=== PATIENT | male | born 1970 | race Caucasian/White ===

== ENCOUNTER 2018-11-18 02:39 | Inpatient (IN) | payer OTHER ==
[~2018-11-18] VITALS: Ht 190.5 cm; Wt 179.6 kg
--- NOTE | 2018-11-18 02:45 | PHYS DOC ---
Past Medical History Past Medical History: GERD, Hypertension, Kidney Stone Past Surgical History: Cholecystectomy Additional Past Surgical Histo: Inguinal hernia Additional Information: Nonsmoker Alcohol Use: Occasionally Drug Use: None Adult General Chief Complaint Chief Complaint: FLANK PAIN HPI HPI 48 y/o male presents with report of left flank pain with radiation to LLQ which started yesterday. Patient reports sharp in nature. Reports it has not resolved but rather has become progressively worse. Denies fever/chills. Denies rash. Denies trauma. Denies dysuria or hematuria. Reports prior history of kidney stones. Review of Systems Review of Systems Constitutional: Denies fever or chills [] Eyes: Denies change in visual acuity, redness, or eye pain [] HENT: Denies nasal congestion or sore throat [] Respiratory: Denies cough or shortness of breath [] Cardiovascular: Denies chest pain or palpitations GI: Reports abdominal pain and nausea; denies vomiting or diarrhea [] : Denies dysuria or hematuria [] Musculoskeletal: Reports left flank pain; denies extremity pain Integument: Denies rash or skin lesions [] Neurologic: Denies headache, focal weakness or sensory changes [] Reports systems were reviewed and found to be within normal limits, except as documented in this note. Current Medications Current Medications Current Medications Medications (Trade) Dose Ordered Sig/[facility] Start Time Stop Time Status Last Admin Dose Admin Ketorolac Tromethamine (Toradol 15mg Vial) 15 mg 1X ONCE 11/18/18 03:30 11/18/18 03:31 DC 11/18/18 03:25 15 MG Metoclopramide HCl (Reglan Vial) 10 mg 1X ONCE 11/18/18 03:30 11/18/18 03:31 DC 11/18/18 03:25 10 MG Sodium Chloride 1,000 ml @ 1,000 mls/hr 1X ONCE 11/18/18 03:30 11/18/18 04:29 DC 11/18/18 03:25 1,000 MLS/HR Allergies Allergies Allergies Coded Allergies Type Severity Reaction Last Updated Verified No Known Drug Allergies 11/18/18 No Physical Exam Physical Exam Constitutional: Well developed, well nourished, uncomfortable, non-toxic appearance. [] HENT: Normocephalic, atraumatic Eyes: Conjunctiva normal, no discharge. [] Neck: Normal range of motion, no tenderness, supple Cardiovascular: Heart rate normal and regular rhythm Lungs & Thorax: Bilateral breath sounds clear to auscultation [] Abdomen: Soft, mild LLQ tenderness on palpitation Skin: Warm, dry, no erythema, no rash. [] Back: No tenderness, left CVA tenderness noted. [] Extremities: No tenderness, ROM intact, no edema. [] Neurologic: Alert and oriented X 3, normal motor function, normal sensory function, no focal deficits noted. [] Psychologic: Affect normal, judgement normal, mood normal. [] Current Patient Data Vital Signs Vital Signs Date Time Temp Pulse Resp B/P (MAP) Pulse Ox O2 Delivery O2 Flow Rate FiO2 11/18/18 02:50 77 173/93 (119) 97 Room Air 11/18/18 02:42 98.0 17 98.0 Lab Values Laboratory Tests Test 11/18/18 03:00 White Blood Count 11.0 x10^3/uL (4.0-11.0) Red Blood Count 4.68 x10^6/uL (4.30-5.70) Hemoglobin 14.7 g/dL (13.0-17.5) Hematocrit 42.8 % (39.0-53.0) Mean Corpuscular Volume 92 fL (79-100) Mean Corpuscular Hemoglobin 31 pg (25-35) Mean Corpuscular Hemoglobin Concent 34 g/dL (31-37) Red Cell Distribution Width 13.2 % (11.5-14.5) Platelet Count 254 x10^3/uL (140-400) Neutrophils (%) (Auto) 77 % (31-73) H Lymphocytes (%) (Auto) 12 % (24-48) L Monocytes (%) (Auto) 9 % (0-9) Eosinophils (%) (Auto) 1 % (0-3) Basophils (%) (Auto) 1 % (0-3) Neutrophils # (Auto) 8.5 x10^3uL (1.8-7.7) H Lymphocytes # (Auto) 1.3 x10^3/uL (1.0-4.8) Monocytes # (Auto) 1.0 x10^3/uL (0.0-1.1) Eosinophils # (Auto) 0.1 x10^3/uL (0.0-0.7) Basophils # (Auto) 0.1 x10^3/uL (0.0-0.2) Sodium Level 139 mmol/L (136-145) Potassium Level 3.7 mmol/L (3.5-5.1) Chloride Level 103 mmol/L (98-107) Carbon Dioxide Level 24 mmol/L (21-32) Anion Gap 12 (6-14) Blood Urea Nitrogen 20 mg/dL (8-26) Creatinine 1.2 mg/dL (0.7-1.3) Estimated GFR (Cockcroft-Gault) 64.9 BUN/Creatinine Ratio 17 (6-20) Glucose Level 135 mg/dL (70-99) H Calcium Level 8.9 mg/dL (8.5-10.1) Magnesium Level 1.9 mg/dL (1.8-2.4) Total Bilirubin 0.5 mg/dL (0.2-1.0) Aspartate Amino Transferase (AST) 31 U/L (15-37) Alanine Aminotransferase (ALT) 58 U/L (16-63) Alkaline Phosphatase 53 U/L (46-116) Total Protein 6.8 g/dL (6.4-8.2) Albumin 3.7 g/dL (3.4-5.0) Albumin/Globulin Ratio 1.2 (1.0-1.7) Lipase 120 U/L (73-393) Laboratory Tests 11/18/18 03:00 Laboratory Tests 11/18/18 03:00 EKG EKG [] Radiology/Procedures Radiology/Procedures PROCEDURE: CT ABDOMEN PELVIS WO CONTRAST Examination: CT of the abdomen pelvis without contrast HISTORY: History of left flank pain COMPARISON: 05/28/2008 TECHNIQUE: Axial CT images of the abdomen pelvis were performed without contrast. Coronal and sagittal reformats are performed Exposure: One or more of the following individualized dose reduction techniques were utilized for this examination: 1. Automated exposure control 2. Adjustment of the mA and/or kV according to patient size 3. Use of iterative reconstruction technique FINDINGS: Minimal bibasilar lung atelectasis. No evidence of free air identified in the abdomen The evaluation of the solid organs is limited due to lack of IV contrast. The evaluation of bowel is limited due to lack of oral contrast. The visualized noncontrasted liver, spleen, adrenals grossly appears unremarkable. Cholecystectomy clips identified. The stomach is mildly distended. The visualized pancreas grossly appears unremarkable. The small bowel is nondilated. Appendix is normal. Feces and gas noted in the colon Multiple sigmoid colon diverticulosis. Urinary bladder is mildly distended 4 mm calculus identified in the left kidney. Mild left-sided hydronephrosis and hydroureter is identified with a 2 mm, and an 8 mm calculi identified at the junction of the mid and distal left ureter causing hydroureteronephrosis. There is fat stranding identified about the left kidney and the left ureter. Urinary bladder is mildly distended. The caliber of the aorta grossly appears unremarkable. Mild degenerative changes thoracic lumbar spine. IMPRESSION: 1. Mild left-sided hydronephrosis and hydroureter identified with fat stranding about the left kidney and the left ureter with a 2 mm, and an 8 mm calculi identified at the junction of the mid and distal left ureter. Electronically signed by: Ajay Taylor MD (11/18/2018 3:15 AM) [facility] Course & Med Decision Making Course & Med Decision Making Pertinent Labs and Imaging studies reviewed. (See chart for details) Patient presents with left flank pain with radiation to LLQ. Pain/nausea addressed. IVF hydration given. Labs obtained and posted to chart. UA without signs of infection. CT abd/pelvis with findings of mild hydronephrosis of left kidney due to obstructing ureteral calculi of 8mm and 2mm. Flomax provided. Patient requiring admission for further evaluation and treatment. Discussed case with Dr. Rangel (hospitalist) who is in agreement with admit. Order for urology consultation placed. Discussed findings and plan with patient, who acknowledges understanding and agreement. Dragon Disclaimer Dragon Disclaimer This electronic medical record was generated, in whole or in part, using a voice recognition dictation system. Departure Departure Impression: Primary Impression: Hydronephrosis with ureteral calculus Disposition: ADMITTED INPATIENT Admitting Physician: Other (Claire) Condition: STABLE Referrals: NO PCP (PCP) AMEYA PATTON DO November 18, 2018 02:45
--- NOTE | 2018-11-18 03:18 | RAD ---
Examination: CT of the abdomen pelvis without contrast HISTORY: History of left flank pain COMPARISON: 05/28/2008 TECHNIQUE: Axial CT images of the abdomen pelvis were performed without contrast. Coronal and sagittal reformats are performed Exposure: One or more of the following individualized dose reduction techniques were utilized for this examination: 1. Automated exposure control 2. Adjustment of the mA and/or kV according to patient size 3. Use of iterative reconstruction technique FINDINGS: Minimal bibasilar lung atelectasis. No evidence of free air identified in the abdomen The evaluation of the solid organs is limited due to lack of IV contrast. The evaluation of bowel is limited due to lack of oral contrast. The visualized noncontrasted liver, spleen, adrenals grossly appears unremarkable. Cholecystectomy clips identified. The stomach is mildly distended. The visualized pancreas grossly appears unremarkable. The small bowel is nondilated. Appendix is normal. Feces and gas noted in the colon Multiple sigmoid colon diverticulosis. Urinary bladder is mildly distended 4 mm calculus identified in the left kidney. Mild left-sided hydronephrosis and hydroureter is identified with a 2 mm, and an 8 mm calculi identified at the junction of the mid and distal left ureter causing hydroureteronephrosis. There is fat stranding identified about the left kidney and the left ureter. Urinary bladder is mildly distended. The caliber of the aorta grossly appears unremarkable. Mild degenerative changes thoracic lumbar spine. IMPRESSION: 1. Mild left-sided hydronephrosis and hydroureter identified with fat stranding about the left kidney and the left ureter with a 2 mm, and an 8 mm calculi identified at the junction of the mid and distal left ureter. Electronically signed by: Ajay Taylor MD (11/18/2018 3:15 AM) [facility]
[2018-11-18 03:24] LABS: BASO # 0.1 x10^3/uL (0.0-0.2); BASO % 1 % (0-3); EOS # 0.1 x10^3/uL (0.0-0.7); EOS % 1 % (0-3); HEMATOCRIT 42.8 % (39.0-53.0); HEMOGLOBIN 14.7 g/dL (13.0-17.5); LYMPH # 1.3 x10^3/uL (1.0-4.8); LYMPH % 12 % (24-48); MEAN CORPUSCULAR HEMOGLOBIN 31 pg (25-35); MEAN CORPUSCULAR HGB CONC 34 g/dL (31-37); MEAN CORPUSCULAR VOLUME 92 fL (79-100); MONO % 9 % (0-9); NEUT # 8.5 x10^3uL (1.8-7.7); NEUT % 77 % (31-73); PLATELET COUNT 254 x10^3/uL (140-400); RED BLOOD COUNT 4.68 x10^6/uL (4.30-5.70); RED CELL DISTRIBUTION WIDTH 13.2 % (11.5-14.5)
[2018-11-18] MEDS ORDERED: KETOROLAC 15 MG/ML VIAL. IV ONE (03:30)
[2018-11-18] MEDS ORDERED: METOCLOPRAMIDE HCL 10 MG/2 ML VIAL. IV ONE (03:30)
[2018-11-18] MEDS ORDERED: IV NORMAL SALINE 1000ML BAG 1,000 ML IV ONE ×2 (03:30→04:00)
[2018-11-18 03:33] LABS: CALCIUM 8.9 mg/dL (8.5-10.1); CREATININE 1.2 mg/dL (0.7-1.3); GFR 64.9; POTASSIUM 3.7 mmol/L (3.5-5.1)
[2018-11-18 03:39] LABS: ALBUMIN 3.7 g/dL (3.4-5.0); ALBUMIN/GLOBULIN RATIO 1.2 (1.0-1.7); MAGNESIUM 1.9 mg/dL (1.8-2.4); TOTAL BILIRUBIN 0.5 mg/dL (0.2-1.0); TOTAL PROTEIN 6.8 g/dL (6.4-8.2)
[2018-11-18] MEDS ORDERED: fentaNYL PF VIAL 100 MCG/2 ML VIAL IV PRN ×3 (03:45→10:15)
[2018-11-18] MEDS ORDERED: ONDANSETRON PF 4 MG/2 ML VIAL. IV PRN ×2 (03:45→10:15)
[2018-11-18] MEDS ORDERED: fentaNYL PF VIAL 100 MCG/2 ML VIAL IV ONE (04:00)
[2018-11-18] MEDS ORDERED: TAMSULOSIN 0.4 MG CAP.ER.24H. PO ONE (04:00)
[2018-11-18 04:20] VITALS: BP 147/87
--- NOTE | 2018-11-18 04:30 | NUR ---
Patient admitted from ER to room 428 per wheelchair. Admitting diagnosis is flank pain with 8mm stone left kidney. Patient states he had a previous stone about 1 year ago. He passed that stone on his own. Patient does not remember the size of that stone. Patient is alert and oriented x4. Patient lives at home with his brother. Patient has NKA. Patient NPO at this time. Consult with Urology. Will continue to monitor.
[2018-11-18] MEDS ORDERED: AMLO5TAB10 PO (05:43)
[2018-11-18] MEDS ORDERED: FLUT9.9S NS (05:43)
[2018-11-18] MEDS ORDERED: ESOM40CA PO (05:43)
[2018-11-18] MEDS ORDERED: MELO15TA23 PO (05:43)
[2018-11-18] MEDS ORDERED: LOSA100T14 PO (05:43)
[2018-11-18 07:00] VITALS: BP 158/91
--- NOTE | 2018-11-18 09:52 | PDOC1 ---
History and Physical Date of Admission Date of Admission DATE: 11/18/18 TIME: 09:52 Identification/Chief Complaint Chief Complaint SEEN IN ER SEVERE PAIN PERSISTS 48 y/o male presents with report of left flank pain with radiation to LLQ which started yesterday. Patient reports sharp in nature. Reports it has not resolved but rather has become progressively worse. Denies fever/chills. Denies rash. Denies trauma. Denies dysuria or hematuria. Reports prior history of kidney stones. Past Medical History Past Medical History Past Medical History Past Medical History: GERD, Hypertension, Kidney Stone Past Surgical History: Cholecystectomy Additional Past Surgical Histo: Inguinal hernia Additional Information: Nonsmoker Alcohol Use: Occasionally Drug Use: None family hx obesity Infectious disease: No pertinent hx Family History Family History: Hypertension Social History Smoke: No ALCOHOL: occassional Drugs: None Current Problem List Problem List Problems Medical Problems: (1) Hydronephrosis with ureteral calculus Status: Acute Current Medications Current Medications Current Medications Ketorolac Tromethamine (Toradol 15mg Vial) 15 mg 1X ONCE IV Last administered on 11/18/18at 03:25; Start 11/18/18 at 03:30; Stop 11/18/18 at 03:31; Status DC Sodium Chloride 1,000 ml @ 1,000 mls/hr 1X ONCE IV Last administered on 11/18/18at 03:25; Start 11/18/18 at 03:30; Stop 11/18/18 at 04:29; Status DC Metoclopramide HCl (Reglan Vial) 10 mg 1X ONCE IV Last administered on 11/18/18at 03:25; Start 11/18/18 at 03:30; Stop 11/18/18 at 03:31; Status DC Tamsulosin HCl (Flomax) 0.4 mg 1X ONCE PO Last administered on 11/18/18at 03:50; Start 11/18/18 at 04:00; Stop 11/18/18 at 04:01; Status DC Fentanyl Citrate (Fentanyl 2ml Vial) 50 mcg 1X ONCE IV Last administered on 11/18/18at 03:50; Start 11/18/18 at 04:00; Stop 11/18/18 at 04:01; Status DC Ondansetron HCl (Zofran) 4 mg PRN Q8HRS PRN IV NAUSEA/VOMITING 1ST CHOICE Last administered on 11/18/18at 07:50; Start 11/18/18 at 03:45; Stop 11/19/18 at 03:44 Fentanyl Citrate (Fentanyl 2ml Vial) 50 mcg PRN Q2HRS PRN IV SEVERE PAIN Last administered on 11/18/18at 06:31; Start 11/18/18 at 03:45 Sodium Chloride 1,000 ml @ 125 mls/hr 1X ONCE IV Last administered on 11/18/18at 04:54; Start 11/18/18 at 04:00; Stop 11/18/18 at 11:59 Active Scripts Active Reported Flonase Allergy Relief (Fluticasone Propionate) 9.9 Ml [place].susp 2 Sprays NS HS Meloxicam 15 Mg Tablet 1 Tab PO DAILY Amlodipine Besylate 5 Mg Tablet 5 Mg PO DAILY Losartan Potassium 100 Mg Tablet 100 Mg PO DAILY Nexium Capsule (Esomeprazole Magnesium) 40 Mg Capsule.dr 1 Cap PO DAILY Allergies Allergies: Coded Allergies: No Known Drug Allergies (Unverified , 11/18/18) ROS Review of System Review of Systems Review of Systems Constitutional: Denies fever or chills [] Eyes: Denies change in visual acuity, redness, or eye pain [] HENT: Denies nasal congestion or sore throat [] Respiratory: Denies cough or shortness of breath [] Cardiovascular: Denies chest pain or palpitations GI: Reports abdominal pain and nausea; denies vomiting or diarrhea [] : Denies dysuria or hematuria [] Musculoskeletal: Reports left flank pain; denies extremity pain Integument: Denies rash or skin lesions [] Neurologic: Denies headache, focal weakness or sensory changes [] 14 PT systems were reviewed and found to be within normal limits, except as documented . General: No: Chills, Night Sweats, Fatigue, Malaise, Appetite, Other ALLERGY AND IMMUNOLOGY: No: Hives, Insect Bite Sensitivity, Itchy/Watery Eyes, Nasal Congestion, Post Nasal Drip, Seasonal Allergies, Other Respiratory: No: Cough, Hemoptysis, Orthopnea, Pleuritic Pain, Shortness of breath, SOB with excertion, Sputum Changes, Stridor, Tachypnea, Wheezing, Other Cardiovascular: No Chest Pain, No Palpitations, No Orthopnea, No Paroxysmal Noc. Dyspnea, No Edema, No Lt Headedness, No Other Genitourinary: YES Flank Pain Neurological: No Behavorial Changes, No Bowel/Bladder ControlChng, No Confusion, No Dizziness, No Gait Disturbance, No Headaches, No Impaired Coord/balance, No Memory Loss, No Numbness/Tingling, No Seizures, No Speech Problems, No Tremors, No Visual Changes, No Weakness, No Other Physical Exam Physical Exam Physical Exam Physical Exam Constitutional: Well developed, well nourished, MOD DISTRESS uncomfortable, non- toxic appearance. [] HENT: Normocephalic, atraumatic Eyes: Conjunctiva normal, no discharge. [] Neck: Normal range of motion, no tenderness, supple Cardiovascular: Heart rate normal and regular rhythm Lungs & Thorax: Bilateral breath sounds clear to auscultation [] Abdomen: Soft, mild LLQ tenderness on palpitation Skin: Warm, dry, no erythema, no rash. [] Back: No tenderness, left CVA tenderness noted. [] Extremities: No tenderness, ROM intact, no edema. [] Neurologic: Alert and oriented X 3, normal motor function, normal sensory function, no focal deficits noted. [] Psychologic: Affect normal, judgement normal, mood normal. [] General: moderate distress HEENT: Atraumatic, PERRLA Lungs: Clear to auscultation Heart: S1S2, RRR Abdomen: Soft Rectal Exam: not examined Neuro: Normal speech, Strength at 5/5 X4 ext, Cranial nerves 3-12 NL Psych/Mental Status: Mental status NL, Mood NL Vitals Vitals Vital Signs Date Time Temp Pulse Resp B/P (MAP) Pulse Ox O2 Delivery O2 Flow Rate FiO2 11/18/18 07:00 98.1 66 18 158/91 (113) 92 Room Air 98.1 Labs Labs Laboratory Tests Test 11/18/18 03:00 11/18/18 07:32 White Blood Count 11.0 x10^3/uL (4.0-11.0) Red Blood Count 4.68 x10^6/uL (4.30-5.70) Hemoglobin 14.7 g/dL (13.0-17.5) Hematocrit 42.8 % (39.0-53.0) Mean Corpuscular Volume 92 fL (79-100) Mean Corpuscular Hemoglobin 31 pg (25-35) Mean Corpuscular Hemoglobin Concent 34 g/dL (31-37) Red Cell Distribution Width 13.2 % (11.5-14.5) Platelet Count 254 x10^3/uL (140-400) Neutrophils (%) (Auto) 77 % (31-73) Lymphocytes (%) (Auto) 12 % (24-48) Monocytes (%) (Auto) 9 % (0-9) Eosinophils (%) (Auto) 1 % (0-3) Basophils (%) (Auto) 1 % (0-3) Neutrophils # (Auto) 8.5 x10^3uL (1.8-7.7) Lymphocytes # (Auto) 1.3 x10^3/uL (1.0-4.8) Monocytes # (Auto) 1.0 x10^3/uL (0.0-1.1) Eosinophils # (Auto) 0.1 x10^3/uL (0.0-0.7) Basophils # (Auto) 0.1 x10^3/uL (0.0-0.2) Sodium Level 139 mmol/L (136-145) Potassium Level 3.7 mmol/L (3.5-5.1) Chloride Level 103 mmol/L (98-107) Carbon Dioxide Level 24 mmol/L (21-32) Anion Gap 12 (6-14) Blood Urea Nitrogen 20 mg/dL (8-26) Creatinine 1.2 mg/dL (0.7-1.3) Estimated GFR (Cockcroft-Gault) 64.9 BUN/Creatinine Ratio 17 (6-20) Glucose Level 135 mg/dL (70-99) Calcium Level 8.9 mg/dL (8.5-10.1) Magnesium Level 1.9 mg/dL (1.8-2.4) Total Bilirubin 0.5 mg/dL (0.2-1.0) Aspartate Amino Transf (AST/SGOT) 31 U/L (15-37) Alanine Aminotransferase (ALT/SGPT) 58 U/L (16-63) Alkaline Phosphatase 53 U/L (46-116) Total Protein 6.8 g/dL (6.4-8.2) Albumin 3.7 g/dL (3.4-5.0) Albumin/Globulin Ratio 1.2 (1.0-1.7) Lipase 120 U/L (73-393) Glucose (Fingerstick) 117 mg/dL (70-99) Laboratory Tests Test 11/18/18 03:00 11/18/18 07:32 White Blood Count 11.0 x10^3/uL (4.0-11.0) Red Blood Count 4.68 x10^6/uL (4.30-5.70) Hemoglobin 14.7 g/dL (13.0-17.5) Hematocrit 42.8 % (39.0-53.0) Mean Corpuscular Volume 92 fL (79-100) Mean Corpuscular Hemoglobin 31 pg (25-35) Mean Corpuscular Hemoglobin Concent 34 g/dL (31-37) Red Cell Distribution Width 13.2 % (11.5-14.5) Platelet Count 254 x10^3/uL (140-400) Neutrophils (%) (Auto) 77 % (31-73) Lymphocytes (%) (Auto) 12 % (24-48) Monocytes (%) (Auto) 9 % (0-9) Eosinophils (%) (Auto) 1 % (0-3) Basophils (%) (Auto) 1 % (0-3) Neutrophils # (Auto) 8.5 x10^3uL (1.8-7.7) Lymphocytes # (Auto) 1.3 x10^3/uL (1.0-4.8) Monocytes # (Auto) 1.0 x10^3/uL (0.0-1.1) Eosinophils # (Auto) 0.1 x10^3/uL (0.0-0.7) Basophils # (Auto) 0.1 x10^3/uL (0.0-0.2) Sodium Level 139 mmol/L (136-145) Potassium Level 3.7 mmol/L (3.5-5.1) Chloride Level 103 mmol/L (98-107) Carbon Dioxide Level 24 mmol/L (21-32) Anion Gap 12 (6-14) Blood Urea Nitrogen 20 mg/dL (8-26) Creatinine 1.2 mg/dL (0.7-1.3) Estimated GFR (Cockcroft-Gault) 64.9 BUN/Creatinine Ratio 17 (6-20) Glucose Level 135 mg/dL (70-99) Calcium Level 8.9 mg/dL (8.5-10.1) Magnesium Level 1.9 mg/dL (1.8-2.4) Total Bilirubin 0.5 mg/dL (0.2-1.0) Aspartate Amino Transf (AST/SGOT) 31 U/L (15-37) Alanine Aminotransferase (ALT/SGPT) 58 U/L (16-63) Alkaline Phosphatase 53 U/L (46-116) Total Protein 6.8 g/dL (6.4-8.2) Albumin 3.7 g/dL (3.4-5.0) Albumin/Globulin Ratio 1.2 (1.0-1.7) Lipase 120 U/L (73-393) Glucose (Fingerstick) 117 mg/dL (70-99) Images Images REASON: left flank pain eval for ureteral calculi PROCEDURE: CT ABDOMEN PELVIS WO CONTRAST Examination: CT of the abdomen pelvis without contrast HISTORY: History of left flank pain COMPARISON: 05/28/2008 TECHNIQUE: Axial CT images of the abdomen pelvis were performed without contrast. Coronal and sagittal reformats are performed Exposure: One or more of the following individualized dose reduction techniques were utilized for this examination: 1. Automated exposure control 2. Adjustment of the mA and/or kV according to patient size 3. Use of iterative reconstruction technique FINDINGS: Minimal bibasilar lung atelectasis. No evidence of free air identified in the abdomen The evaluation of the solid organs is limited due to lack of IV contrast. The evaluation of bowel is limited due to lack of oral contrast. The visualized noncontrasted liver, spleen, adrenals grossly appears unremarkable. Cholecystectomy clips identified. The stomach is mildly distended. The visualized pancreas grossly appears unremarkable. The small bowel is nondilated. Appendix is normal. Feces and gas noted in the colon Multiple sigmoid colon diverticulosis. Urinary bladder is mildly distended 4 mm calculus identified in the left kidney. Mild left-sided hydronephrosis and hydroureter is identified with a 2 mm, and an 8 mm calculi identified at the junction of the mid and distal left ureter causing hydroureteronephrosis. There is fat stranding identified about the left kidney and the left ureter. Urinary bladder is mildly distended. The caliber of the aorta grossly appears unremarkable. Mild degenerative changes thoracic lumbar spine. IMPRESSION: 1. Mild left-sided hydronephrosis and hydroureter identified with fat stranding about the left kidney and the left ureter with a 2 mm, and an 8 mm calculi identified at the junction of the mid and distal left ureter. Electronically signed by: Ajay Taylor MD (11/18/2018 3:15 AM) [facility] VTE Prophylaxis Ordered VTE Prophylaxis Devices: Yes VTE Pharmacological Prophylaxi: Yes Assessment/Plan Assessment/Plan IMPRESSION: 1. Mild left-sided hydronephrosis and hydroureter identified with fat stranding about the left kidney and the left ureter with a 2 mm, and an 8 mm calculi identified at the junction of the mid and distal left ureter. 2. INTRACTABLE PAIN SEC TO URETERAL COLIC 3. HTN 4. Morbid obesity, extreme bmi 49 plan iv pain control npo urology consult home meds ADMIT DVT PROPHYLAXIS CHRISTINE BELL MD November 18, 2018 09:52
[2018-11-18] MEDS ORDERED: IV RINGERS,LACTATED 1000ML 1,000 ML IV SCH (10:06)
--- NOTE | 2018-11-18 10:13 | RAD ---
Portable KUB, 11/18/2018: HISTORY: Check kidney stone The abdominal gas pattern is unremarkable. The patient's known urinary tract calculi are not visible. The portable technique and the patient's size is limiting this exam. There is no evidence of organomegaly. IMPRESSION: No acute abdominal abnormality is detected. Electronically signed by: Wilmer Scruggs MD (11/18/2018 10:10 AM) [facility]
[2018-11-18 10:15] LABS: BILIRUBIN,URINE NEGATIVE (NEG); CLARITY,URINE CLEAR; COLOR,URINE YELLOW; NITRITE,URINE NEGATIVE (NEG); PH,URINE 6.5; PROTEIN,URINE NEGATIVE (NEG-TRACE)
[2018-11-18] MEDS ORDERED: PROCHLORPERAZINE 10 MG/2 ML VIAL. IV PRN (10:15)
[2018-11-18] MEDS ORDERED: LIDOCAINE 1% PF 2 ML VIAL. ID PRN (10:15)
[2018-11-18] MEDS ORDERED: HYDROmorphone 2 MG/ML VIAL IV PRN (10:15)
[2018-11-18] MEDS ORDERED: MORPHINE SULFATE 2 MG/ML VIAL. IV PRN (10:15)
[2018-11-18 10:24] LABS: BACTERIA,URINE FEW /HPF (0-FEW); SQUAMOUS EPITHELIAL CELL,UR OCC /LPF; WBC,URINE OCC /HPF (0-4)
--- NOTE | 2018-11-18 10:30 | PDOC2 ---
REHANJOANNE L [employer] ANALYST 11/18/18 1030: UROLOGY CONSULT Date of Consult Date of Consult DATE: 11/18/18 TIME: Identification/Chief Complaint Chief Complaint Kidney stone/left sided pain Source Source: Caregiver, Chart review, Patient History of Present Illness Reason for Visit: This 48 year odl male arrived through the R complaining of left sided pain and left abd pain. Today his pain is still sharp and in his left side. He is nauseas but not vomiting. This is not his ftrst time with a kidney stone. He had one several years ago, but it was not this painful and it came out on its own. He had some dysuria once, but this is not really a problem. He denies hematuria and prefers to have a surgery today for this if possible. Past Medical History Cardiovascular: HTN (Controlled with medication ) Renal/: Other (Kidney stone in the past ) Social History No ALCOHOL: occassional Drugs: None Current Medications Current Medications Current Medications Fentanyl Citrate (Fentanyl 2ml Vial) 25 mcg PRN Q5MIN PRN IV MILD PAIN; Start 11/18/18 at 10:15; Stop 11/18/18 at 20:00 Fentanyl Citrate (Fentanyl 2ml Vial) 50 mcg 1X ONCE IV Last administered on 11/18/18at 03:50; Start 11/18/18 at 04:00; Stop 11/18/18 at 04:01; Status DC Fentanyl Citrate (Fentanyl 2ml Vial) 50 mcg PRN Q2HRS PRN IV SEVERE PAIN Last administered on 11/18/18at 06:31; Start 11/18/18 at 03:45 Fentanyl Citrate (Fentanyl 2ml Vial) 50 mcg PRN Q5MIN PRN IV MODERATE TO SEVERE PAIN; Start 11/18/18 at 10:15; Stop 11/18/18 at 20:00 Hydromorphone HCl (Dilaudid) 0.5 mg PRN Q10MIN PRN IV SEV PAIN, Second choice; Start 11/18/18 at 10:15; Stop 11/18/18 at 20:00 Ketorolac Tromethamine (Toradol 15mg Vial) 15 mg 1X ONCE IV Last administered on 11/18/18at 03:25; Start 11/18/18 at 03:30; Stop 11/18/18 at 03:31; Status DC Lidocaine HCl (Xylocaine-Mpf 1% 2ml Vial) 2 ml 1X PRN PRN ID IV START; Start 11/18/18 at 10:15; Stop 11/18/18 at 20:00 Metoclopramide HCl (Reglan Vial) 10 mg 1X ONCE IV Last administered on 11/18/18at 03:25; Start 11/18/18 at 03:30; Stop 11/18/18 at 03:31; Status DC Morphine Sulfate (Morphine Sulfate) 1 mg PRN Q10MIN PRN IV SEVERE PAIN; Start 11/18/18 at 10:15; Stop 11/18/18 at 20:00 Ondansetron HCl (Zofran) 4 mg PRN Q6HRS PRN IV NAUSEA/VOMITING; Start 11/18/18 at 10:15; Stop 11/18/18 at 20:00 Ondansetron HCl (Zofran) 4 mg PRN Q8HRS PRN IV NAUSEA/VOMITING 1ST CHOICE Last administered on 11/18/18at 07:50; Start 11/18/18 at 03:45; Stop 11/19/18 at 03:44 Prochlorperazine Edisylate (Compazine) 5 mg PACU PRN PRN IV NAUSEA, MRX1; Start 11/18/18 at 10:15; Stop 11/18/18 at 20:00 Ringer's Solution 1,000 ml @ 30 mls/hr Q24H IV ; Start 11/18/18 at 10:06; Stop 11/18/18 at 22:05 Sodium Chloride 1,000 ml @ 125 mls/hr 1X ONCE IV Last administered on 11/18/18at 04:54; Start 11/18/18 at 04:00; Stop 11/18/18 at 11:59 Sodium Chloride 1,000 ml @ 1,000 mls/hr 1X ONCE IV Last administered on 11/18/18at 03:25; Start 11/18/18 at 03:30; Stop 11/18/18 at 04:29; Status DC Tamsulosin HCl (Flomax) 0.4 mg 1X ONCE PO Last administered on 11/18/18at 03:50; Start 11/18/18 at 04:00; Stop 11/18/18 at 04:01; Status DC Allergies Allergies: Coded Allergies: No Known Drug Allergies (Unverified , 11/18/18) ROS Review Of Systems: CONSTITUTIONAL: No fever or chills EYES: No recent changes SKIN: No rash or itching CARDIOVASCULAR: No chest pain, syncope, palpitations, or edema RESPIRATORY: No SOB or cough GASTROINTESTINAL: + nausea, no vomiting, + left sided abdominal pain NEUROLOGICAL: No headaches or weakness ENDOCRINE: No cold or heat intolerance GENITOURINARY: + dysuria but improved, no hematuria MUSCULOSKELETAL: No back pain or joint pain LYMPHATICS: No enlarged lymph nodes PSYCHIATRIC: No anxiety or depression Physical Exam Physical Exam: General: Pleasant, no acute distress, well groomed Eyes: conjunctiva anicteric, eyes full range of motion ENT: moist oral mucosa, normal dentition Neck: Trachea midline, no masses Respiratory: unlabored breathing, not using accessory muscles, Abdomen: Soft, obese + tender left side, non tender on the right. Skin: no rashes or skin lesions on visualized skin Psych: normal mood, affect. Alert and oriented x 3. Vitals VITALS Vital Signs Date Time Temp Pulse Resp B/P (MAP) Pulse Ox O2 Delivery O2 Flow Rate FiO2 11/18/18 07:00 98.1 66 18 158/91 (113) 92 Room Air 98.1 Labs Labs Laboratory Tests Test 11/18/18 03:00 11/18/18 07:32 White Blood Count 11.0 x10^3/uL (4.0-11.0) Red Blood Count 4.68 x10^6/uL (4.30-5.70) Hemoglobin 14.7 g/dL (13.0-17.5) Hematocrit 42.8 % (39.0-53.0) Mean Corpuscular Volume 92 fL (79-100) Mean Corpuscular Hemoglobin 31 pg (25-35) Mean Corpuscular Hemoglobin Concent 34 g/dL (31-37) Red Cell Distribution Width 13.2 % (11.5-14.5) Platelet Count 254 x10^3/uL (140-400) Neutrophils (%) (Auto) 77 % (31-73) Lymphocytes (%) (Auto) 12 % (24-48) Monocytes (%) (Auto) 9 % (0-9) Eosinophils (%) (Auto) 1 % (0-3) Basophils (%) (Auto) 1 % (0-3) Neutrophils # (Auto) 8.5 x10^3uL (1.8-7.7) Lymphocytes # (Auto) 1.3 x10^3/uL (1.0-4.8) Monocytes # (Auto) 1.0 x10^3/uL (0.0-1.1) Eosinophils # (Auto) 0.1 x10^3/uL (0.0-0.7) Basophils # (Auto) 0.1 x10^3/uL (0.0-0.2) Sodium Level 139 mmol/L (136-145) Potassium Level 3.7 mmol/L (3.5-5.1) Chloride Level 103 mmol/L (98-107) Carbon Dioxide Level 24 mmol/L (21-32) Anion Gap 12 (6-14) Blood Urea Nitrogen 20 mg/dL (8-26) Creatinine 1.2 mg/dL (0.7-1.3) Estimated GFR (Cockcroft-Gault) 64.9 BUN/Creatinine Ratio 17 (6-20) Glucose Level 135 mg/dL (70-99) Calcium Level 8.9 mg/dL (8.5-10.1) Magnesium Level 1.9 mg/dL (1.8-2.4) Total Bilirubin 0.5 mg/dL (0.2-1.0) Aspartate Amino Transf (AST/SGOT) 31 U/L (15-37) Alanine Aminotransferase (ALT/SGPT) 58 U/L (16-63) Alkaline Phosphatase 53 U/L (46-116) Total Protein 6.8 g/dL (6.4-8.2) Albumin 3.7 g/dL (3.4-5.0) Albumin/Globulin Ratio 1.2 (1.0-1.7) Lipase 120 U/L (73-393) Glucose (Fingerstick) 117 mg/dL (70-99) Laboratory Tests Test 11/18/18 03:00 11/18/18 07:32 White Blood Count 11.0 x10^3/uL (4.0-11.0) Red Blood Count 4.68 x10^6/uL (4.30-5.70) Hemoglobin 14.7 g/dL (13.0-17.5) Hematocrit 42.8 % (39.0-53.0) Mean Corpuscular Volume 92 fL (79-100) Mean Corpuscular Hemoglobin 31 pg (25-35) Mean Corpuscular Hemoglobin Concent 34 g/dL (31-37) Red Cell Distribution Width 13.2 % (11.5-14.5) Platelet Count 254 x10^3/uL (140-400) Neutrophils (%) (Auto) 77 % (31-73) Lymphocytes (%) (Auto) 12 % (24-48) Monocytes (%) (Auto) 9 % (0-9) Eosinophils (%) (Auto) 1 % (0-3) Basophils (%) (Auto) 1 % (0-3) Neutrophils # (Auto) 8.5 x10^3uL (1.8-7.7) Lymphocytes # (Auto) 1.3 x10^3/uL (1.0-4.8) Monocytes # (Auto) 1.0 x10^3/uL (0.0-1.1) Eosinophils # (Auto) 0.1 x10^3/uL (0.0-0.7) Basophils # (Auto) 0.1 x10^3/uL (0.0-0.2) Sodium Level 139 mmol/L (136-145) Potassium Level 3.7 mmol/L (3.5-5.1) Chloride Level 103 mmol/L (98-107) Carbon Dioxide Level 24 mmol/L (21-32) Anion Gap 12 (6-14) Blood Urea Nitrogen 20 mg/dL (8-26) Creatinine 1.2 mg/dL (0.7-1.3) Estimated GFR (Cockcroft-Gault) 64.9 BUN/Creatinine Ratio 17 (6-20) Glucose Level 135 mg/dL (70-99) Calcium Level 8.9 mg/dL (8.5-10.1) Magnesium Level 1.9 mg/dL (1.8-2.4) Total Bilirubin 0.5 mg/dL (0.2-1.0) Aspartate Amino Transf (AST/SGOT) 31 U/L (15-37) Alanine Aminotransferase (ALT/SGPT) 58 U/L (16-63) Alkaline Phosphatase 53 U/L (46-116) Total Protein 6.8 g/dL (6.4-8.2) Albumin 3.7 g/dL (3.4-5.0) Albumin/Globulin Ratio 1.2 (1.0-1.7) Lipase 120 U/L (73-393) Glucose (Fingerstick) 117 mg/dL (70-99) Images Images CT ABD/PELVIS IMPRESSION: 1. Mild left-sided hydronephrosis and hydroureter identified with fat stranding about the left kidney and the left ureter with a 2 mm, and an 8 mm calculi identified at the junction of the mid and distal left ureter. Assessment/Plan Assessment/Plan Patient is scheduled for left URS with laser and stent [place] with [place] Ibar[place] [facility] [place] 1 [place]. Pt is requesting and agreeable to procedure. Consents entered. Discussed with RN that we need UA pedro. Cipro ordered. Pt to remain NPO until after procedure. Continue IVF, pain and nausea control and to strain urine. All questions answered. JUVENTINO SINGLETON MD 11/18/18 9189: UROLOGY CONSULT Assessment/Plan Assessment/Plan left distal stone. left hydro. Will proceed w URS given pain control issues. gh, uti, injury to urethra, bladder, UO, ureter, kidney, stent discomfort, migration, etc discussed. JOANNE VAN APRN November 18, 2018 10:30 JUVENTINO SINGLETON MD November 18, 2018 14:39
[2018-11-18] MEDS ORDERED: IOHEXOL 300 MG/ML 50 ML VIAL. ONE ×2 (10:32→11:30)
[2018-11-18] MEDS ORDERED: LIDOCAINE 2% 100 MG/5 ML SYRINGE. ONE (10:33)
[2018-11-18] MEDS ORDERED: LIDOCAINE 2% JELLY 6ML IN APPLICATOR. ONE (10:34)
[2018-11-18 11:00] VITALS: BP 132/70
[2018-11-18] MEDS ORDERED: ROCURONIUM 50 MG/5 ML VIAL. ONE (12:12)
[2018-11-18] MEDS ORDERED: fentaNYL PF VIAL 100 MCG/2 ML VIAL ONE (12:12)
--- NOTE | 2018-11-18 12:31 | NUR ---
SW following for discharge planning. Discussed with RN, pt is from home with brother. Pt having surgery today. SW will continue to follow for any discharge planning needs.
[2018-11-18] MEDS ORDERED: SEVOFLURANE 61 TO 120 MINUTES. IH ONE (13:54)
[2018-11-18] MEDS ORDERED: ONDANSETRON PF 4 MG/2 ML VIAL. ONE (13:54)
[2018-11-18] MEDS ORDERED: PROPOFOL 40 ML IV ONE (13:54)
[2018-11-18] MEDS ORDERED: DEXAMETHASONE SOD PHOS 4 MG/ML VIAL ONE ×2 (13:55)
[2018-11-18] MEDS ORDERED: LIDOCAINE 2% PF 5 ML VIAL. ONE (13:55)
[2018-11-18] MEDS ORDERED: NEOSTIGMINE METHYLSULFATE 5 MG/5 ML SYRINGE. ONE (14:22)
[2018-11-18] MEDS ORDERED: GLYCOPYRROLATE 1 MG/5 ML VIAL. ONE (14:22)
--- NOTE | 2018-11-18 14:36 | PDOC4 ---
OPERATIVE NOTE Date: Date: November 18, 2018 Pre-Op Diagnosis: Left distal stone Post-Op Diagnosis: same Procedure Performed: left urs w laser /stent left rpg Surgeon: Anesthesia Type: ga Blood Loss: 1ml Specimans Obtained: stones Findings: left distal stones Complications: none evident JUVENTINO SINGLETON MD November 18, 2018 14:36
[2018-11-18] MEDS ORDERED: hydrALAZINE 20 MG/ML VIAL. ONE (15:20)
[2018-11-18] MEDS ORDERED: hydrALAZINE 20 MG/ML VIAL. IVP PRN (15:30)
[2018-11-18 15:55] VITALS: BP 158/94
[2018-11-18 16:15] VITALS: BP 147/102
[2018-11-18 16:30] VITALS: BP 145/102
--- NOTE | 2018-11-18 16:42 | OP ---
DATE OF SURGERY: 11/18/2018 PREOPERATIVE DIAGNOSIS: Left ureter stone. POSTOPERATIVE DIAGNOSIS: Left ureter stone. PROCEDURE: 1. Left ureteroscopy with laser lithotripsy. 2. Left retrograde pyelography interpretation. SURGEON: Kathe Goncalves MD. ANESTHESIA: General. CONDITION: Stable. COMPLICATIONS: None. FINDINGS: Left distal ureter stones 1.8 x 1.2 mm. These were removed entirely. ESTIMATED BLOOD LOSS: 0-1 mL. CONDITION: Stable. COMPLICATIONS: None evident. PROCEDURE IN DETAIL: The patient was taken back to the procedure room and placed under general anesthesia in the supine position per the protocol. He was prepped and draped in usual sterile fashion in dorsal lithotomy position. Timeout was performed. SCDs were attached. IV antibiotics were administered. A 21-Salvadorean rigid cystoscope was advanced per urethra into the bladder. Careful systematic review of the bladder, a small capacity bladder with left ureteral orifice orthotopic and patent position. This was cannulated with a 5-Salvadorean open-ended ureteral catheter. Gentle retrograde pyelography visualized questionable filling defect noted in the distal ureter about 2 cm below the sacroiliac joint lower level. A sensor wire was placed over the Pollack all the way into the kidney. A semirigid ureteroscope was obtained and inserted into the distal ureter. A 365 nanometers laser fiber was used to pulverize the stone into smaller pieces. All fragments were removed with 0 tip nitinol basket. A flexible ureteroscopy visualized no residual fragments noted in the entirety of the ureter given on instrumentation and ureteral dilation. I decided to leave the stent behind. This was done under fluoroscopy with 6 x 26 stents with strings externalized to the penis with Mastisol and Tegaderm. The patient was awakened and taken to the PACU in stable condition. DISPOSITION: The patient may be discharged home later today. He will follow up with me. He will remove his strings at home in a week and follow up with me in 2-3 weeks afterwards or get a followup in the clinic next week for a nurse's string removal with the stent. KATHE GONCALVES MD DR: SOLANGE/danny JOB#: [id number] / [id number]
--- NOTE | 2018-11-18 18:20 | PDOC3 ---
Discharge Summary Date of Admission: November 17, 2018 Date of Discharge: November 18, 2018 Follow-Up: 3-5 days Admitting Diagnosis comment: VTE Prophylaxis Ordered VTE Prophylaxis Devices: Yes VTE Pharmacological Prophylaxi: Yes discharge dx Assessment/Plan IMPRESSION: 1. Mild left-sided hydronephrosis and hydroureter identified with fat stranding about the left kidney and the left ureter with a 2 mm, and an 8 mm calculi identified at the junction of the mid and distal left ureter. 2. INTRACTABLE PAIN SEC TO URETERAL COLIC 3. HTN 4. Morbid obesity, extreme bmi 49 plan iv pain control npo urology consult ok with d/c today home meds ADMIT DVT PROPHYLAXIS PREOPERATIVE DIAGNOSIS: Left ureter stone. POSTOPERATIVE DIAGNOSIS: Left ureter stone. PROCEDURE: 1. Left ureteroscopy with laser lithotripsy. 2. Left retrograde pyelography interpretation. SURGEON: Kathe Goncalves MD. ANESTHESIA: General. CONDITION: Stable. COMPLICATIONS: None. FINDINGS: Left distal ureter stones 1.8 x 1.2 mm. These were removed entirely. ESTIMATED BLOOD LOSS: 0-1 mL. CONDITION: Stable. FINAL DIAGNOSIS Problems Medical Problems: (1) Hydronephrosis with ureteral calculus Status: Acute Brief Hospital Course Mr. Gonzalez is a 48 old [sex] who presented with [ urteral colic] CONDITION AT DISCHARGE: Improved Discharge Medications Current Medications Ketorolac Tromethamine (Toradol 15mg Vial) 15 mg 1X ONCE IV Last administered on 11/18/18at 03:25; Start 11/18/18 at 03:30; Stop 11/18/18 at 03:31; Status DC Sodium Chloride 1,000 ml @ 1,000 mls/hr 1X ONCE IV Last administered on 11/18/18at 03:25; Start 11/18/18 at 03:30; Stop 11/18/18 at 04:29; Status DC Metoclopramide HCl (Reglan Vial) 10 mg 1X ONCE IV Last administered on 11/18/18at 03:25; Start 11/18/18 at 03:30; Stop 11/18/18 at 03:31; Status DC Tamsulosin HCl (Flomax) 0.4 mg 1X ONCE PO Last administered on 11/18/18at 03:50; Start 11/18/18 at 04:00; Stop 11/18/18 at 04:01; Status DC Fentanyl Citrate (Fentanyl 2ml Vial) 50 mcg 1X ONCE IV Last administered on 11/18/18at 03:50; Start 11/18/18 at 04:00; Stop 11/18/18 at 04:01; Status DC Ondansetron HCl (Zofran) 4 mg PRN Q8HRS PRN IV NAUSEA/VOMITING 1ST CHOICE Last administered on 11/18/18at 07:50; Start 11/18/18 at 03:45; Stop 11/19/18 at 03:44 Fentanyl Citrate (Fentanyl 2ml Vial) 50 mcg PRN Q2HRS PRN IV SEVERE PAIN Last administered on 11/18/18at 06:31; Start 11/18/18 at 03:45 Sodium Chloride 1,000 ml @ 125 mls/hr 1X ONCE IV Last administered on 11/18/18at 04:54; Start 11/18/18 at 04:00; Stop 11/18/18 at 11:59; Status DC Ondansetron HCl (Zofran) 4 mg PRN Q6HRS PRN IV NAUSEA/VOMITING; Start 11/18/18 at 10:15; Stop 11/18/18 at 20:00 Fentanyl Citrate (Fentanyl 2ml Vial) 25 mcg PRN Q5MIN PRN IV MILD PAIN; Start 11/18/18 at 10:15; Stop 11/18/18 at 20:00 Fentanyl Citrate (Fentanyl 2ml Vial) 50 mcg PRN Q5MIN PRN IV MODERATE TO SEVERE PAIN; Start 11/18/18 at 10:15; Stop 11/18/18 at 20:00 Morphine Sulfate (Morphine Sulfate) 1 mg PRN Q10MIN PRN IV SEVERE PAIN; Start 11/18/18 at 10:15; Stop 11/18/18 at 20:00 Ringer's Solution 1,000 ml @ 30 mls/hr Q24H IV Last administered on 11/18/18at 12:33; Start 11/18/18 at 10:06; Stop 11/18/18 at 22:05 Lidocaine HCl (Xylocaine-Mpf 1% 2ml Vial) 2 ml 1X PRN PRN ID IV START; Start 11/18/18 at 10:15; Stop 11/18/18 at 20:00 Hydromorphone HCl (Dilaudid) 0.5 mg PRN Q10MIN PRN IV SEV PAIN, Second choice; Start 11/18/18 at 10:15; Stop 11/18/18 at 20:00 Prochlorperazine Edisylate (Compazine) 5 mg PACU PRN PRN IV NAUSEA, MRX1; Start 11/18/18 at 10:15; Stop 11/18/18 at 20:00 Ciprofloxacin/ Dextrose 200 ml @ 200 mls/hr 1X ONCE IV ; Start 12/08/18 at 12:30; Stop 12/08/18 at 13:29 Iohexol (Omnipaque 300 Mg/ml) 50 ml STK-MED ONCE .ROUTE Last administered on 11/18/18at 13:47; Start 11/18/18 at 10:32; Stop 11/18/18 at 11:33; Status DC Lidocaine HCl (Lidocaine HCl 2% Abboject) 100 mg STK-MED ONCE .ROUTE ; Start 11/18/18 at 10:33; Stop 11/18/18 at 11:33; Status DC Lidocaine HCl (Glydo (Lidocaine) Jelly) 6 celestina STK-MED ONCE .ROUTE ; Start 11/18/18 at 10:34; Stop 11/18/18 at 11:34; Status DC Fentanyl Citrate (Fentanyl 2ml Vial) 100 mcg STK-MED ONCE .ROUTE ; Start 11/18/18 at 12:12; Stop 11/18/18 at 12:13; Status DC Rocuronium Lenore (Zemuron) 50 mg STK-MED ONCE .ROUTE ; Start 11/18/18 at 12:12; Stop 11/18/18 at 12:13; Status DC Iohexol (Omnipaque 300 Mg/ml) 50 ml STK-MED ONCE .ROUTE ; Start 11/18/18 at 11:30; Stop 11/18/18 at 12:31; Status DC Sevoflurane (Ultane) 60 ml STK-MED ONCE IH ; Start 11/18/18 at 13:54; Stop 11/18/18 at 13:55; Status DC Ondansetron HCl (Zofran) 4 mg STK-MED ONCE .ROUTE ; Start 11/18/18 at 13:54; Stop 11/18/18 at 13:55; Status DC Propofol 40 ml @ As Directed STK-MED ONCE IV ; Start 11/18/18 at 13:54; Stop 11/18/18 at 13:55; Status DC Lidocaine HCl (Lidocaine Pf 2% Vial) 5 ml STK-MED ONCE .ROUTE ; Start 11/18/18 at 13:55; Stop 11/18/18 at 13:56; Status DC Dexamethasone Sodium Phosphate (Decadron) 4 mg STK-MED ONCE .ROUTE ; Start 11/18/18 at 13:55; Stop 11/18/18 at 13:56; Status DC Dexamethasone Sodium Phosphate (Decadron) 4 mg STK-MED ONCE .ROUTE ; Start 11/18/18 at 13:55; Stop 11/18/18 at 13:56; Status DC Neostigmine Methylsulfate (Neostigmine Methylsulfate) 5 mg STK-MED ONCE .ROUTE ; Start 11/18/18 at 14:22; Stop 11/18/18 at 14:23; Status DC Glycopyrrolate (Robinul) 1 mg STK-MED ONCE .ROUTE ; Start 11/18/18 at 14:22; Stop 11/18/18 at 14:23; Status DC Hydralazine HCl (Apresoline Inj) 20 mg STK-MED ONCE .ROUTE ; Start 11/18/18 at 15:20; Stop 11/18/18 at 15:21; Status DC Hydralazine HCl (Apresoline Inj) 10 mg PRN 1X PRN IVP see comments; Start 11/18/18 at 15:30 Active Scripts Active Reported Flonase Allergy Relief (Fluticasone Propionate) 9.9 Ml Niland.susp 2 Sprays NS HS Meloxicam 15 Mg Tablet 1 Tab PO DAILY Amlodipine Besylate 5 Mg Tablet 5 Mg PO DAILY Losartan Potassium 100 Mg Tablet 100 Mg PO DAILY Nexium Capsule (Esomeprazole Magnesium) 40 Mg Capsule.dr 1 Cap PO DAILY Vital Signs Vital Signs Date Time Temp Pulse Resp B/P (MAP) Pulse Ox O2 Delivery O2 Flow Rate FiO2 11/18/18 16:30 95 18 145/102 (116) 93 Room Air 11/18/18 15:55 97.0 97.0 11/18/18 15:35 2 Labs Laboratory Tests Test 11/18/18 03:00 11/18/18 07:32 11/18/18 10:00 White Blood Count 11.0 x10^3/uL (4.0-11.0) Red Blood Count 4.68 x10^6/uL (4.30-5.70) Hemoglobin 14.7 g/dL (13.0-17.5) Hematocrit 42.8 % (39.0-53.0) Mean Corpuscular Volume 92 fL (79-100) Mean Corpuscular Hemoglobin 31 pg (25-35) Mean Corpuscular Hemoglobin Concent 34 g/dL (31-37) Red Cell Distribution Width 13.2 % (11.5-14.5) Platelet Count 254 x10^3/uL (140-400) Neutrophils (%) (Auto) 77 % (31-73) Lymphocytes (%) (Auto) 12 % (24-48) Monocytes (%) (Auto) 9 % (0-9) Eosinophils (%) (Auto) 1 % (0-3) Basophils (%) (Auto) 1 % (0-3) Neutrophils # (Auto) 8.5 x10^3uL (1.8-7.7) Lymphocytes # (Auto) 1.3 x10^3/uL (1.0-4.8) Monocytes # (Auto) 1.0 x10^3/uL (0.0-1.1) Eosinophils # (Auto) 0.1 x10^3/uL (0.0-0.7) Basophils # (Auto) 0.1 x10^3/uL (0.0-0.2) Sodium Level 139 mmol/L (136-145) Potassium Level 3.7 mmol/L (3.5-5.1) Chloride Level 103 mmol/L (98-107) Carbon Dioxide Level 24 mmol/L (21-32) Anion Gap 12 (6-14) Blood Urea Nitrogen 20 mg/dL (8-26) Creatinine 1.2 mg/dL (0.7-1.3) Estimated GFR (Cockcroft-Gault) 64.9 BUN/Creatinine Ratio 17 (6-20) Glucose Level 135 mg/dL (70-99) Calcium Level 8.9 mg/dL (8.5-10.1) Magnesium Level 1.9 mg/dL (1.8-2.4) Total Bilirubin 0.5 mg/dL (0.2-1.0) Aspartate Amino Transf (AST/SGOT) 31 U/L (15-37) Alanine Aminotransferase (ALT/SGPT) 58 U/L (16-63) Alkaline Phosphatase 53 U/L (46-116) Total Protein 6.8 g/dL (6.4-8.2) Albumin 3.7 g/dL (3.4-5.0) Albumin/Globulin Ratio 1.2 (1.0-1.7) Lipase 120 U/L (73-393) Glucose (Fingerstick) 117 mg/dL (70-99) Urine Collection Type Unknown Urine Color Yellow Urine Clarity Clear Urine pH 6.5 Urine Specific [place] 1.015 Urine Protein Negative mg/dL (NEG-TRACE) Urine Glucose (UA) Negative mg/dL (NEG) Urine Ketones (Stick) Negative mg/dL (NEG) Urine Blood Trace (NEG) Urine Nitrite Negative (NEG) Urine Bilirubin Negative (NEG) Urine Urobilinogen Dipstick 1.0 mg/dL (0.2 mg/dL) Urine Leukocyte Esterase Negative (NEG) Urine RBC 6-10 /HPF (0-2) Urine WBC Occ /HPF (0-4) Urine Squamous Epithelial Cells Occ /LPF Urine Bacteria Few /HPF (0-FEW) Urine Mucus Mod /LPF Laboratory Tests Test 11/18/18 03:00 11/18/18 07:32 11/18/18 10:00 White Blood Count 11.0 x10^3/uL (4.0-11.0) Red Blood Count 4.68 x10^6/uL (4.30-5.70) Hemoglobin 14.7 g/dL (13.0-17.5) Hematocrit 42.8 % (39.0-53.0) Mean Corpuscular Volume 92 fL (79-100) Mean Corpuscular Hemoglobin 31 pg (25-35) Mean Corpuscular Hemoglobin Concent 34 g/dL (31-37) Red Cell Distribution Width 13.2 % (11.5-14.5) Platelet Count 254 x10^3/uL (140-400) Neutrophils (%) (Auto) 77 % (31-73) Lymphocytes (%) (Auto) 12 % (24-48) Monocytes (%) (Auto) 9 % (0-9) Eosinophils (%) (Auto) 1 % (0-3) Basophils (%) (Auto) 1 % (0-3) Neutrophils # (Auto) 8.5 x10^3uL (1.8-7.7) Lymphocytes # (Auto) 1.3 x10^3/uL (1.0-4.8) Monocytes # (Auto) 1.0 x10^3/uL (0.0-1.1) Eosinophils # (Auto) 0.1 x10^3/uL (0.0-0.7) Basophils # (Auto) 0.1 x10^3/uL (0.0-0.2) Sodium Level 139 mmol/L (136-145) Potassium Level 3.7 mmol/L (3.5-5.1) Chloride Level 103 mmol/L (98-107) Carbon Dioxide Level 24 mmol/L (21-32) Anion Gap 12 (6-14) Blood Urea Nitrogen 20 mg/dL (8-26) Creatinine 1.2 mg/dL (0.7-1.3) Estimated GFR (Cockcroft-Gault) 64.9 BUN/Creatinine Ratio 17 (6-20) Glucose Level 135 mg/dL (70-99) Calcium Level 8.9 mg/dL (8.5-10.1) Magnesium Level 1.9 mg/dL (1.8-2.4) Total Bilirubin 0.5 mg/dL (0.2-1.0) Aspartate Amino Transf (AST/SGOT) 31 U/L (15-37) Alanine Aminotransferase (ALT/SGPT) 58 U/L (16-63) Alkaline Phosphatase 53 U/L (46-116) Total Protein 6.8 g/dL (6.4-8.2) Albumin 3.7 g/dL (3.4-5.0) Albumin/Globulin Ratio 1.2 (1.0-1.7) Lipase 120 U/L (73-393) Glucose (Fingerstick) 117 mg/dL (70-99) Urine Collection Type Unknown Urine Color Yellow Urine Clarity Clear Urine pH 6.5 Urine Specific [place] 1.015 Urine Protein Negative mg/dL (NEG-TRACE) Urine Glucose (UA) Negative mg/dL (NEG) Urine Ketones (Stick) Negative mg/dL (NEG) Urine Blood Trace (NEG) Urine Nitrite Negative (NEG) Urine Bilirubin Negative (NEG) Urine Urobilinogen Dipstick 1.0 mg/dL (0.2 mg/dL) Urine Leukocyte Esterase Negative (NEG) Urine RBC 6-10 /HPF (0-2) Urine WBC Occ /HPF (0-4) Urine Squamous Epithelial Cells Occ /LPF Urine Bacteria Few /HPF (0-FEW) Urine Mucus Mod /LPF Allergies Allergies Coded Allergies Type Severity Reaction Last Updated Verified No Known Drug Allergies 11/18/18 No Disposition/Orders: D/C to Home Patient Instructions d/c planning 37 min CHRISTINE BELL MD November 18, 2018 18:20
[2018-11-18] MEDS ORDERED: HYDR-2763 PO (18:24)
--- NOTE | 2018-11-18 18:25 | DISCH ---
DISCHARGE INSTRUCTIONS Condition on Discharge Condition on Discharge: Stable Activity After Discharge Activity Instructions for Disc: Activity as tolerated Lifting Instructions after Dis: No heavy lifting, No pulling or pushing Driving Instructions after Dis: Do not drive Diet after Discharge Diet after Discharge: Cardiac Checks after Discharge Checks after discharge: Check blood press - daily Contacting the DR. after DC Call your doctor for: If your condition worsens CHRISTINE BELL MD November 18, 2018 18:25
--- NOTE | 2018-11-18 18:51 | NUR ---
Discharge instructions reviewed with patient verbalized understanding. Patient was escorted out of hospital via wheelchair by this RN accompanied by his brother.
--- NOTE | 2018-11-21 14:06 | PATHOLOGY ---
[facility] Accession Number: [id number] . 01 Material submitted: . kidney - LEFT URETERAL AND KIDNEY STONES. Modifiers: left . 01 Clinical history: . Left flank pain, ureteral and kidney stones . 02 Diagnosis: Calculi, left ureter and left kidney, removal: - Calculi/ureterolithiasis and nephrolithiasis (gross diagnosis only). - Specimen forwarded for stone analysis, results to be reported in an addendum when available. S/11/21/2018 . 02 Electronically signed: . Joaquin Allison MD, Pathologist NPI- [id number] . 01 Gross description: . The specimen is received fresh, labeled "Pedro Luis Gonzalez, left ureteral and kidney stones", are four irregular fragments of silverman to brown calculi measuring 0.5 x 0.3 x 0.2 cm in aggregate. Gross only. (SWS; 11/18/2018) . SHS/SHS . 02 Pathologist provided ICD-10: N20.0 . 02 CPT . 897057 Specimen Comment: A courtesy copy of this report has been sent to Specimen Comment: [phone], . Specimen Comment: Report sent to DR SARAVIA / DR PATTON Specimen Comment: A duplicate report has been generated due to demographic updates. Performed at: 01 [facility] [address], [place] [id number] MD Mikey Moore MD Phone: [phone] Performed at: [facility] [address] [place], [place] [id number] MD Joaquin Allison MD Phone: [phone]
[2018-12-08] MEDS ORDERED: CIPROFLOXACIN 400MG PREMIX 200 ML IV ONE (12:30)
== END 2018-11-18 18:52 | disposition home or self-care (01) | DRG 660 ==
LOC: ER 02:39 → 4 NORTH 03:39
PROVIDERS: ADMIT Internal Medicine; ATTEND Internal Medicine
PROC: 0TC78ZZ Extirpation of Matter from Left Ureter, Via Natural or Artificial Opening Endoscopic (ICD-10-PCS; 2018-11-18)
PROC: BT1F1ZZ Fluoroscopy of Left Kidney, Ureter and Bladder using Low Osmolar Contrast (ICD-10-PCS; 2018-11-18)
PROC: 0T778DZ Dilation of Left Ureter with Intraluminal Device, Via Natural or Artificial Opening Endoscopic (ICD-10-PCS; principal; 2018-11-18 13:00)
DX: N13.2 Hydronephrosis with renal and ureteral calculous obstruction (principal); Z68.42 Body mass index [BMI] 45.0-49.9, adult; E66.01 Morbid (severe) obesity due to excess calories; I10 Essential (primary) hypertension; K21.9 Gastro-esophageal reflux disease without esophagitis; K57.30 Diverticulosis of large intestine without perforation or abscess without bleeding; Z82.49 Family history of ischemic heart disease and other diseases of the circulatory system; Z87.442 Personal history of urinary calculi; Z79.899 Other long term (current) drug therapy; Z90.49 Acquired absence of other specified parts of digestive tract
CPT/HCPCS: 36415; 74018; 74176; 76000; 80053; 81001; 82365; 82962; 83690; 83735; 85025; 88300; 96361; 96374; 96375; A7015; C1713; C1769; C2617; J1100; J1885; J2001; J2405; J2704; J2710; J2765; J3010; J3490; J7030; J7120; Q9967; 99285-25